=== PATIENT | male | born 1950 | race Caucasian/White ===

== ENCOUNTER 2016-09-28 11:41 | Emergency (ER) | payer MEDICARE, OTHER ==
[~2016-09-28] VITALS: Ht 190.5 cm; Wt 106.1 kg
[2016-09-28 12:22] VITALS: BP 145/73
[2016-09-28 15:23] LABS: BASOPHILS # (AUTO) 0.1 K/uL (0.00-0.22); BASOPHILS % (AUTO) 1.3 % (0.0-2.0); EOSINOPHILS # (AUTO) 0.2 K/uL (0-0.4); EOSINOPHILS % (AUTO) 3.5 % (0.0-4.0); HEMATOCRIT 34.3 % (36-52); HEMOGLOBIN 11.1 g/dL (12.0-18.0); LYMPHOCYTES # (AUTO) 0.9 K/uL (2.0-11.5); LYMPHOCYTES % (AUTO) 21.1 % (20.5-51.1); MEAN CORPUSCULAR HEMOGLOBIN 27 pg (27-31); MEAN CORPUSCULAR HGB CONC 33 g/dL (33-37); MEAN CORPUSCULAR VOLUME 84 fL (80-94); MONOCYTES # (AUTO) 0.3 K/uL (0.8-1.0); MONOCYTES % (AUTO) 6.6 % (1.7-9.3); NEUTROPHILS # (AUTO) 2.9 K/uL (1.8-7.7); NEUTROPHILS % (AUTO) 67.5 % (42.2-75.2); PLATELET COUNT (AUTO) 85 K/uL (140-450); RED BLOOD CELL COUNT(AUTO) 4.07 MIL/uL (4.20-6.10); RED CELL DISTRIBUTION WIDTH 15.5 % (11.6-13.7); WHITE BLOOD COUNT (AUTO) 4.4 K/uL (4.8-10.8)
[2016-09-28 15:27] LABS: ANION GAP 13.3 (8-16); CALCIUM 7.9 mg/dL (8.5-10.1); CARBON DIOXIDE 25.9 mmol/L (21-32); POTASSIUM 4.2 mmol/L (3.5-5.1)
[2016-09-28 15:30] LABS: INR 1.3 (0.8-1.2); PROTHROMBIN TIME 13.4 secs (10.8-13.4)
[2016-09-28 15:33] LABS: ALBUMIN 2.6 g/dL (3.4-5.0); TOTAL BILIRUBIN 1.2 mg/dL (0.0-1.0); TOTAL PROTEIN, SERUM 7.2 g/dL (6.4-8.2)
[2016-09-28 15:41] LABS: LACTIC ACID 1.2 mmol/L (0.4-2.0)
--- NOTE | 2016-09-28 17:31 | NUR ---
Pt ambulated to bed 6.
--- NOTE | 2016-09-28 17:46 | NUR ---
Patient being evaluated by physician at bedside.
[2016-09-28 17:50] VITALS: BP 137/63
[2016-09-28] MEDS ORDERED: cefTRIAXone 1,000 MG in LIDOCAINE 1% ED 2.1 ML IM ONE (17:50)
[2016-09-28] MEDS ORDERED: SULFAMETH/TRIMETH DS 800/160MG 1 TAB PO ONE (17:50)
--- NOTE | 2016-09-28 18:34 | NUR ---
Patient does not wish to proceed with medical care recommended by DR. SHEPHERD. Patient given information related to possible complications, up to and including , which could occur as a result of leaving hospital at this time. Patient verbalizes understanding of risks involved leaving against medical advice. Patient has signed AMA form.
== END 2016-09-28 18:34 | disposition left against medical advice (07) ==
LOC: MED 11:41
DX: L03.116 Cellulitis of left lower limb (principal)
CPT/HCPCS: 36415; 80053; 83605; 83880; 85025; 85610; 87040; 96372; 99284; J0696; J2001

== ENCOUNTER 2016-10-05 11:38 | Inpatient (IN) | payer MEDICARE, OTHER ==
--- NOTE | 2014-10-06 19:21 | NUR ---
RECEIVED REPORT, ASSUMED CARE. PT AAOX4. RESPIRATION EVEN AND UNLABORED,NO SOB, NO S/S OF RESPIRATORY DISTRESS AT THIS TIME. DENIES PAIN. PT STILL ON HEPARIN DRIP AT 1400UNITS ORDERED. EDUCATED ABOUT SAFETY AND FALL PREVENTION. DISCUSSED PLAN OF CARE. PT VERBALIZED UNDERSTANDING. WILL CONTINUE TO MONITOR
[~2016-10-05] VITALS: Ht 188 cm; Wt 106.6 kg
[2016-10-05 11:43] VITALS: BP 162/73
--- NOTE | 2016-10-05 11:43 | NUR ---
Patient ambulated to bed 05.
--- NOTE | 2016-10-05 11:44 | NUR ---
Dr. Brown evaluating patient at bedside.
--- NOTE | 2016-10-05 11:49 | NUR ---
PT PRESENTS TO ER FOR RECHECK OF LEFT FOOT WOUND. PT STATES HE LOST HIS PRESCRIPTION FOR KEFLEX. PT DENIES ANY MEDICAL HX. . PT STATES was seen by dr elisha glasgow;DENIES N/V/D; SKIN IS PINK/WARM/DRY; AAOX4 WITH EVEN AND STEADY GAIT; PT DENIES ANY FEVER, CP, SOB, OR COUGH AT THIS TIME; PATIENT STATES PAIN OF 10/10 lt foot AT THIS TIME;PATIENT POSITIONED FOR COMFORT; HOB ELEVATED; BEDRAILS UP X2; BED DOWN. all monitors in placed.
[2016-10-05] MEDS ORDERED: CLINDAMYCIN 600 MG in DEXTROSE 5% 50 ML IV ONE (11:50)
[2016-10-05] MEDS ORDERED: NACL 0.9% 1,000 ML IV ONE (11:50)
[2016-10-05] MEDS ORDERED: KETOROLAC 30 MG/ML VIAL IVP ONE (11:50)
--- NOTE | 2016-10-05 11:51 | NUR ---
LAB at bedside.
[2016-10-05] MEDS ORDERED: CLINDAMYCIN 600 MG/4 ML VIAL ONE (11:57)
--- NOTE | 2016-10-05 12:13 | NUR ---
US at bedside.
[2016-10-05 12:14] LABS: ANION GAP 10.1 (8-16); CALCIUM 7.5 mg/dL (8.5-10.1); CARBON DIOXIDE 27.5 mmol/L (21-32); CREATININE 1.4 mg/dL (0.7-1.3); POTASSIUM 4.6 mmol/L (3.5-5.1)
[2016-10-05 12:17] LABS: BASOPHILS # (AUTO) 0.1 K/uL (0.00-0.22); BASOPHILS % (AUTO) 3.1 % (0.0-2.0); EOSINOPHILS # (AUTO) 0.2 K/uL (0-0.4); EOSINOPHILS % (AUTO) 5.1 % (0.0-4.0); HEMATOCRIT 34.3 % (36-52); HEMOGLOBIN 10.7 g/dL (12.0-18.0); LYMPHOCYTES # (AUTO) 0.7 K/uL (2.0-11.5); LYMPHOCYTES % (AUTO) 22.8 % (20.5-51.1); MEAN CORPUSCULAR HEMOGLOBIN 27 pg (27-31); MEAN CORPUSCULAR HGB CONC 31 g/dL (33-37); MEAN CORPUSCULAR VOLUME 86 fL (80-94); MONOCYTES # (AUTO) 0.2 K/uL (0.8-1.0); MONOCYTES % (AUTO) 5.7 % (1.7-9.3); NEUTROPHILS # (AUTO) 1.9 K/uL (1.8-7.7); NEUTROPHILS % (AUTO) 63.3 % (42.2-75.2); PLATELET COUNT (AUTO) 117 K/uL (140-450); RED CELL DISTRIBUTION WIDTH 15.9 % (11.6-13.7); WHITE BLOOD COUNT (AUTO) 3.1 K/uL (4.8-10.8)
[2016-10-05] MEDS ORDERED: HEPARIN PER PHARMACY MC PRN ×2 (12:35→15:55)
[2016-10-05] MEDS ORDERED: hePARIN / DEXT 5% PREMIX 250 ML IV ONE (12:35)
[2016-10-05] MEDS ORDERED: HYDROcodone/APAP 5/325 MG 1 TAB TAB PO PRN (12:45)
[2016-10-05] MEDS ORDERED: ONDANSETRON 4 MG/2 ML VIAL IVP PRN (12:45)
[2016-10-05] MEDS ORDERED: MORPHINE SULFATE 2 MG/ML SYR IVP ONE (12:45)
[2016-10-05 12:58] LABS: INR 1.3 (0.8-1.2); PARTIAL THROMBOPLASTIN TIME 28.1 secs (22-35.6); PROTHROMBIN TIME 12.7 secs (10.8-13.4)
[2016-10-05 13:19] LABS: CHOL/HDL RATIO 2.2 (1-4.5)
[2016-10-05 13:23] LABS: THYROID STIMULATING HORMONE 3.68 uIU/mL (0.34-3.74)
--- NOTE | 2016-10-05 13:25 | NUR ---
Patient taken to TELE 106A via gurney per RN/EMT.
--- NOTE | 2016-10-05 13:30 | NUR ---
ER NURSES BROUGHT PT TO UNIT. PT IS ALERT AWAKE AND ORIENTED. PT HAS IV ON L AC 20 G RUNNING HEPARIN DRIP 1900 UNITS. PT HAS IV ON R F/A 20 G RUNNING NS. PT HAS BL LE SKIN DISCOLORATION AND SWOLLEN. PT DENIES PAIN. PT USES URINAL. NO OTHER COMPLAINTS AT THIS TIME. ORIENTED TO ROOM AND UNIT AND CALL WHIPPLE. PT VERBALIZED UNDERSTANDING. CALL LIGHT WITHIN REACH. WILL CONTINUE TO MONITOR.
--- NOTE | 2016-10-05 13:34 | NUR ---
Patient will be admitted to care of dr syed. Admited to tele. Will go to room 106 a. Belongings list completed. Report to wesly bartholomew.
[2016-10-05] MEDS ORDERED: SULF1TAB12 PO (13:39)
[2016-10-05 14:00] VITALS: BP 122/64
[2016-10-05 14:03] LABS: APPEARANCE,URINE CLEAR (CLEAR); BILIRUBIN,URINE NEGATIVE (NEGATIVE); BLOOD, URINE 2+ (NEGATIVE); COLOR,URINE YELLOW (YELLOW); LEUKOCYTE ESTERASE ,URINE NEGATIVE (NEGATIVE); NITRITE, URINE NEGATIVE (NEGATIVE); PH,URINE 6.5 (5.0-9.0); PROTEIN,URINE NEGATIVE (NEGATIVE); UGLUCOSE NEGATIVE (NEGATIVE)
[2016-10-05 14:23] LABS: AMPHETAMINE, URINE NEG. ng/ml (NEG <=1000); BARBITURATE, URINE NEG. ng/ml (NEG <=200); BENZODIAZEPINE, URINE NEG. ng/mL (NEG <=200); CANNABINOID, URINE NEG. ng/mL (NEG <=50); COCAINE, URINE NEG. ng/mL (NEG <=300); OPIATE, URINE NEG. ng/mL (NEG <=2000); PHENCYCLIDINE SCREEN,URINE NEG. ng/mL (NEG <=25)
[2016-10-05 14:40] LABS: WBC,URINE 0-3 /HPF (0-5)
[2016-10-05 14:41] LABS: BACTERIA,URINE RARE /HPF (None Seen); MUCUS,URINE 1+ /LPF (None Seen); SQUAMOUS EPITHELIAL CELL,UR 0-3 /LPF (0-3 (FEW))
--- NOTE | 2016-10-05 15:00 | NUR ---
PT IS RESTING COMFORTABLY IN BED. HEPARIN DRIP RUNNING AT 1900 UNITS. CALL LIGHT WITHIN REACH. WILL CONTINUE TO MONITOR.
[2016-10-05] MEDS ORDERED: hePARIN / DEXT 5% PREMIX 250 ML IV SCH (15:55)
[2016-10-05 16:00] VITALS: BP 129/71
[2016-10-05 16:08] LABS: ALBUMIN 2.6 g/dL (3.4-5.0); BILIRUBIN,DIRECT 0.2 mg/dL (0.0-0.3); TOTAL BILIRUBIN 0.7 mg/dL (0.0-1.0); TOTAL PROTEIN, SERUM 6.8 g/dL (6.4-8.2)
--- NOTE | 2016-10-05 16:40 | NUR ---
EKG DONE AT BEDSIDE. PT TOLERATED WELL. CALL LIGHT WITHIN REACH. WILL CONTINUE TO MONITOR.
[2016-10-05] MEDS ORDERED: WARFARIN 5 MG TAB PO SCH (17:00)
--- NOTE | 2016-10-05 17:12 | NUR ---
SPOKE TO DR. HIGUERA REGARDING PT'S PLATELET COUNT OF [address] STATED IT'S OK. NO CHANGE IN ORDER.
[2016-10-05] MEDS: CLINDAMYCIN 300 MG in DEXTROSE 5% 50 ML IV SCH (17:19)
[2016-10-05] MEDS: NACL 0.9% 1,000 ML IV SCH (17:20)
--- NOTE | 2016-10-05 17:40 | NUR ---
WARFARIN MEDICATION EDUCATION GIVEN, HANDOUT GIVEN. PT VERBALIZED UNDERSTANDING AND SIGNED ALL APPROPRIATE PAPERWORK.
[2016-10-05] MEDS: hePARIN / DEXT 5% PREMIX 250 ML IV SCH (17:43)
--- NOTE | 2016-10-05 18:27 | NUR ---
OBTAINED PT SIGNATURE FOR AUTHORIZATION FOR [facility]. OBTAINED [employer]'S FAX NUMBER [phone]. FORM TO BE FAXED TOMORROW MORNING.
--- NOTE | 2016-10-05 19:20 | NUR ---
ENDORSED CARE OF PT TO BIODIESEL PLANT MANAGER NURSE AT BEDSIDE. PT IN STABLE CONDITION.
--- NOTE | 2016-10-05 19:21 | NUR ---
RECEIVED REPORT, ASSUMED CARE. PT AAOX4. RESPIRATION EVEN AND UNLABORED,NO SOB, NO S/S OF RESPIRATORY DISTRESS AT THIS TIME. DENIES PAIN. BLOOD CURRENTLY BEING DRAWN FOR PTT. EDUCATED ABOUT SAFETY AND FALL PREVENTION. DISCUSSED PLAN OF CARE. PT VERBALIZED UNDERSTANDING. WILL CONTINUE TO MONITOR.
[2016-10-05 19:34] LABS: INR 1.3 (0.8-1.2); PROTHROMBIN TIME 13.7 secs (10.8-13.4)
[2016-10-05 20:00] VITALS: BP_SYST 12; BP_SYST 125; BP_DIAS 125; BP_DIAS 70
--- NOTE | 2016-10-05 21:35 | NUR ---
PTT RESULT 114.5- HEPARIN DRIP PER PROTOCOL.
--- NOTE | 2016-10-05 22:35 | NUR ---
RESTARTED IV HEPARIN DRIP, ADJUSTED TO 1200UNITS PER PROTOCOL. NEXT PTT TO BE DRAWN AT 0500
[2016-10-06] VITALS: BP 129/70
[2016-10-06] MEDS: CLINDAMYCIN 300 MG in DEXTROSE 5% 50 ML IV SCH ×4 (00:19→17:56)
[2016-10-06 04:00] VITALS: BP 110/56
[2016-10-06] MEDS: NACL 0.9% 1,000 ML IV SCH ×2 (04:25→13:47)
--- NOTE | 2016-10-06 05:08 | NUR ---
PT AWAKE AND VERBALLY RESPONSIVE. BLOOD BEING DRAWN FOR PTT BY THE ACCOUNTING TUTOR.
--- NOTE | 2016-10-06 05:17 | NUR ---
PTT RESULT 47.0, CONTINUE ON SAME HEPARIN 1200UNITS PER PROTOCOL. WILL CONTINUE TO MONITOR.
[2016-10-06] MEDS: hePARIN / DEXT 5% PREMIX 250 ML IV SCH ×2 (05:38→17:00)
[2016-10-06 06:21] LABS: HEMOGLOBIN 9.3 g/dL (12.0-18.0); MEAN CORPUSCULAR HEMOGLOBIN 28 pg (27-31); MEAN CORPUSCULAR HGB CONC 32 g/dL (33-37)
[2016-10-06 06:45] LABS: ANION GAP 9.5 (8-16); CALCIUM 7.4 mg/dL (8.5-10.1); CARBON DIOXIDE 25.6 mmol/L (21-32); CREATININE 1.2 mg/dL (0.7-1.3); POTASSIUM 5.1 mmol/L (3.5-5.1)
[2016-10-06 06:54] LABS: MAGNESIUM 1.8 mg/dL (1.8-2.4); PHOSPHORUS 4.5 mg/dL (2.5-4.9)
--- NOTE | 2016-10-06 07:20 | NUR ---
PT AWAKE AND VERBALLY RESPONSIVE. NO S/S OF RESPIRATORY DISTRESS THROUGHOUT THE SHIFT. CONTINUE ON HEPARIN DRIP ORDERED. DENIES PAIN AT THIS TIME. PT IN STABLE CONDITION. ENDORSED TO NEXT SHIFT FOR CONTINUITY OF CARE.
[2016-10-06 07:22] LABS: HEMATOCRIT 28.6 % (36-52); MEAN CORPUSCULAR VOLUME 86 fL (80-94); RED BLOOD CELL COUNT(AUTO) 3.33 MIL/uL (4.20-6.10); WHITE BLOOD COUNT (AUTO) 2.1 K/uL (4.8-10.8)
[2016-10-06 07:23] LABS: PLATELET COUNT (AUTO) 86 K/uL (140-450); RED CELL DISTRIBUTION WIDTH 15.9 % (11.6-13.7)
[2016-10-06 07:52] LABS: BAND % (MANUAL) 1 % (0-8); BASOPHILS % (MANUAL) 1 % (0-2); EOSINOPHILS % (MANUAL) 5 % (0-4); LYMPHOCYTES % (MANUAL) 30 % (20-46); METAMYELOCYTES % 1 % (0-0); MONOCYTES % (MANUAL) 5 % (5-12); NEUTROPHILS % (MANUAL) 57 (43-65); PLATELET ESTIMATE DECREASED
[2016-10-06 07:53] LABS: HYPOCHROMASIA 1+
[2016-10-06 08:00] VITALS: BP 122/66
--- NOTE | 2016-10-06 08:41 | NUR ---
PATIENT HAS BEEN SCREENED AND CATEGORIZED LOW NUTRITION RISK. PATIENT WILL BE SEEN WITHIN 7 DAYS OF ADMISSION. 10/12/[address]
[2016-10-06] MEDS: CALCIUM CARB/VIT-D 500 MG/200 IU 1 TAB PO SCH (08:49)
--- NOTE | 2016-10-06 09:20 | NUR ---
FAXED PT'S AUTHORIZATION FORM TO [employer].
--- NOTE | 2016-10-06 10:00 | NUR ---
SPOKE TO DR REGARDING PT'S BLEEDING AT IV SITE AND LOW PLATELET COUNT AND PT'S REQUEST FOR A DIFFERENT PAIN MED.
[2016-10-06] MEDS: ACETAMINOPHEN/CODEINE 300/30MG 1 TAB PO PRN ×2 (10:33→21:27)
[2016-10-06 11:04] LABS: HEMATOCRIT 29.6 % (36-52); HEMOGLOBIN 9.4 g/dL (12.0-18.0); MEAN CORPUSCULAR HEMOGLOBIN 27 pg (27-31); MEAN CORPUSCULAR HGB CONC 32 g/dL (33-37); MEAN CORPUSCULAR VOLUME 85 fL (80-94); PLATELET COUNT (AUTO) 79 K/uL (140-450); RED BLOOD CELL COUNT(AUTO) 3.48 MIL/uL (4.20-6.10); RED CELL DISTRIBUTION WIDTH 15.9 % (11.6-13.7); WHITE BLOOD COUNT (AUTO) 2.3 K/uL (4.8-10.8)
[2016-10-06 11:14] LABS: BASOPHILS % (MANUAL) 2 % (0-2); EOSINOPHILS % (MANUAL) 5 % (0-4); LYMPHOCYTES % (MANUAL) 26 % (20-46); MONOCYTES % (MANUAL) 6 % (5-12); NEUTROPHILS % (MANUAL) 61 (43-65); PLATELET ESTIMATE DECREASED
[2016-10-06 11:15] LABS: HYPOCHROMASIA RARE HYPO
[2016-10-06 11:17] LABS: INR 1.3 (0.8-1.2); PROTHROMBIN TIME 13.5 secs (10.8-13.4)
--- NOTE | 2016-10-06 11:30 | NUR ---
WILL ADMINISTER HEPARIN BOLUS ACCORDINGLY AND INCREASE RATE ACCORDING TO ORDER.
--- NOTE | 2016-10-06 11:35 | NUR ---
PTT 41.1. ADMINISTERED A BOLUS OF 3700 UNITS. CHANGED RATE TO 1400 UNITS/HOUR.
[2016-10-06 12:00] VITALS: BP 126/68
--- NOTE | 2016-10-06 13:30 | NUR ---
DR EXAMINED PT IN ROOM. QUESTIONS ANSWERED. PT RESTING IN BED. CALL LIGHT WITHIN REACH. WILL CONTINUE TO MONITOR.
--- NOTE | 2016-10-06 15:00 | NUR ---
PT IS RESTING COMFORTABLY IN BED. NO COMPLAINTS AT THIS TIME. CALL LIGHT WITHIN REACH. WILL CONTINUE TO MONITOR.
[2016-10-06 15:27] LABS: FOLIC ACID 7.8 ng/mL (>3.0)
[2016-10-06 16:00] VITALS: BP 123/71
--- NOTE | 2016-10-06 16:40 | NUR ---
INR 1.3. ADMINISTERED WARFARIN. PT TOLERATED WELL. CALL LIGHT WITHIN REACH. WILL CONTINUE TO MONITOR.
[2016-10-06] MEDS ORDERED: WARFARIN 5 MG TAB PO SCH ×2 (17:00)
--- NOTE | 2016-10-06 17:53 | NUR ---
PTT 61.2, NO CHANGE TO RATE.
--- NOTE | 2016-10-06 17:55 | NUR ---
REINSERTED NEW IV 22 G ON L AC DUE TO OLD IV BLEEDING. PT TOLERATED WELL. CALL LIGHT WITHIN REACH. WILL CONTINUE TO MONITOR.
--- NOTE | 2016-10-06 19:20 | NUR ---
PT IN STABLE CONDITION. ENDORSED TO UPHOLSTERER APPRENTICE AT BEDSIDE.
[2016-10-06 20:00] VITALS: BP 134/66
[2016-10-06] MEDS ORDERED: SIMVASTATIN 10 MG TAB PO SCH (21:00)
--- NOTE | 2016-10-06 23:30 | NUR ---
SUPERVISOR BLAST FURNACE IN FOR FOR PTT BLOOD DRAW.
[2016-10-07] VITALS: BP 145/77
[2016-10-07] MEDS: CLINDAMYCIN 300 MG in DEXTROSE 5% 50 ML IV SCH ×2 (00:21→06:18)
--- NOTE | 2016-10-07 01:07 | NUR ---
PTT RESULT 28.5. HEPARIN 7500UNITS BOLUS ADMINISTERED VIA IV PUSH PER PROTOCOL. ADJUSTED HEPARIN DRIP RATE TO 1800UNITS PER PROTOCOL. NEXT PTT TO BE DRAWN IN AM AT 0700.
[2016-10-07] MEDS: hePARIN / DEXT 5% PREMIX 250 ML IV SCH (01:08)
--- NOTE | 2016-10-07 01:30 | NUR ---
NOTED IV ACCESS TO LT AC (HEPARIN SITE) INFILTRATED, PT COMPLAINING OF PAIN. MILD SWELLING NOTED TO THE SITE. INFORMED PT THIS GUTTER HANGER WILL START A NEW IV LINE, HOWEVER, PT DECLINES AND STATES, "NO, NOT ANYMORE. I'LL HAVE MY DOCTOR DISCHARGE ME TOMORROW." PT STATES HE'LL REQUEST MD TO PRESCRIBE HIM SOMETHING THAT HE CAN TAKE AT HOME. EDUCATION PROVIDED RE: RISKS/BENEFITS AND IMPORTANCE OF GETTING IV ANTIBIOTICS AND HEPARIN THERAPY,TO NO AVAIL. PT CONTINUES TO REFUSE IV INSERTION DESPITE EXPLANATIONS PROVIDED. HELD IVF FOR NOW, CHANGED HEPARIN DRIP TO THE RIGHT AC. WILL CONTINUE TO MONITOR.
[2016-10-07 04:00] VITALS: BP 128/66
[2016-10-07] MEDS: NACL 0.9% 1,000 ML IV SCH (05:25)
--- NOTE | 2016-10-07 06:00 | NUR ---
FRANCESCO(YARD COUPLER) MADE AN ATTEMPT TO DRAW BLOOD FOR LAB TEST, HOWEVER, PT REFUSED. EDUCATION PROVIDED WITH EXPLANATIONS OF RISKS/BENEFITS, TO NO AVAIL.
[2016-10-07 06:13] LABS: HEPATITIS A ANTIBODY IGM Negative (Negative); HEPATITIS A ANTIBODY TOTAL Negative (Negative); HEPATITIS B CORE AB TOTAL Negative (Negative); HEPATITIS B CORE, IGM Negative (Negative); HEPATITIS B SURFACE AB Non Reactive (.); HEPATITIS B SURFACE ANTIGEN Negative (Negative); HEPATITIS C VIRUS ANTIBODY 0.1 s/co ratio (0.0-0.9)
--- NOTE | 2016-10-07 06:30 | NUR ---
RESIDENT MD SEEN PT AND EXPLAINED ABOUT THE NEED OF CONTINUING HEPARIN THERAPY. PT STARTS YELLING AT MD AND STRONGLY REFUSES TO BE DISCHARGED AFTER BREAKFAST.
--- NOTE | 2016-10-07 07:28 | NUR ---
PT AWAKE AND VERBALLY RESPONSIVE. NO ACUTE CHANGES NOTED. DENIES PAIN AT THIS TIME. PT CONTINUES TO VERBALIZE OF GOING HOME TODAY. ENDORSED TO NEXT SHIFT FOR CONTINUITY OF CARE. PT IN STABLE CONDITION.
--- NOTE | 2016-10-07 07:30 | NUR ---
RECEIVED REPORT FROM HEBER MEDEL. PT IS SLEEPING IN BED BUT EASILY AWAKEN, A/OX4, AMBULATORY, PT HAS IV ON THE RT FA, INFILTRATION NOTED, LET THE PATIENT KNOW THE IV NEEDED TO BE DISCONTINUED, PT STATED IF THE IV WAS REMOVED, HE WOULD REFUSE TO HAVE ANOTHER IV INSERTED, PT DOES HAVE AN IV ON THE RT AC HEPARIN RUNNING AT 1800 UNITS/HR, BILATERAL LEG CELLULITIS NOTED, NO S/S OF RESPIRATORY DISTRESS OR DISCOMFORT NOTED, DISCUSSED PLAN OF CARE WITH PT, PT VERBALIZED HE DID NOT WANT TO BE "POKED ANYMORE AND WANTED TO BE DISCHARGED," CALL LIGHT IS WITHIN REACH, WILL CONTINUE TO MONITOR.
--- NOTE | 2016-10-07 07:45 | NUR ---
PATIENT REFUSED AM BLOOD DRAWS.
--- NOTE | 2016-10-07 07:53 | NUR ---
DR. ANDREW'S RESIDENT GROUP AT PATIENT'S BEDSIDE SPEAKING WITH PATIENT.
[2016-10-07 08:00] VITALS: BP 133/63
[2016-10-07] MEDS ORDERED: ASPIRIN 81 MG TAB.CHEW PO SCH (09:00)
[2016-10-07] MEDS: CALCIUM CARB/VIT-D 500 MG/200 IU 1 TAB PO SCH (09:06)
--- NOTE | 2016-10-07 09:07 | NUR ---
DUE MEDICATIONS GIVEN, PT TOLERATED WELL, NO S/S OF RESPIRATORY DISTRESS OR DISCOMFORT NOTED, CALL LIGHT WITHIN REACH, WILL CONTINUE TO MONITOR.
--- NOTE | 2016-10-07 11:40 | NUR ---
PT REFUSING TREATMENT, DOCTOR IN THE ROOM SPEAKING WITH PT, PT DECIDED TO LEAVE AMA, IV'S REMOVED, CATHETER TIP INTACT, ID WRIST BAND REMOVED.
== END 2016-10-07 11:40 | disposition left against medical advice (07) | DRG 602 ==
LOC: MED 11:38 → MTU 12:44
PROVIDERS: ADMIT Family Medicine; ATTEND Family Medicine
DX: L03.116 Cellulitis of left lower limb (principal); N17.0 Acute kidney failure with tubular necrosis; E43 Unspecified severe protein-calorie malnutrition; I82.4Z2 Acute embolism and thrombosis of unspecified deep veins of left distal lower extremity; L03.115 Cellulitis of right lower limb; E83.51 Hypocalcemia; I10 Essential (primary) hypertension; K74.60 Unspecified cirrhosis of liver; D64.9 Anemia, unspecified; F17.200 Nicotine dependence, unspecified, uncomplicated; D72.819 Decreased white blood cell count, unspecified; I73.9 Peripheral vascular disease, unspecified; Z53.21 Procedure and treatment not carried out due to patient leaving prior to being seen by health care provider; Z79.899 Other long term (current) drug therapy; Z72.89 Other problems related to lifestyle; Z91.14 Patient's other noncompliance with medication regimen; Z68.30 Body mass index [BMI] 30.0-30.9, adult
CPT/HCPCS: 36415; 71010; 80048; 80076; 80305; 81001; 82607; 82728; 82746; 83036; 83540; 83735; 84100; 84443; 85025; 85045; 85610; 85730; 86704; 86706; 86708; 86709; 86803; 87040; 87081; 87340; 93005; 93925; 93971; 96365; 96367; 96375; 96376; 99285; J1644; J1885; J3490; J7030; J7060; Q0092